=== PATIENT | female | born 1975 | race American Indian/Alaskan Native ===

== ENCOUNTER → 2024-07-21 | Outpatient (CLI) | payer MEDICAID, SELFPAY ==
--- NOTE | 2024-07-21 12:29 | XR_ITS ---
Examination: Foot, right, 3 views Technique: AP, oblique, lateral views foot, 3 views Date and time of exam: July 21, 2024 1231 hrs. Indications: Redness swelling and pain involving the first digit one week. Findings: Soft tissue swelling about the first digit. No fracture. No cortical bone destruction Impression: No fracture or cortical bone destruction
== END | disposition home or self-care (01) ==
LOC: CDIM 12:22
PROVIDERS: Referring Provider Nurse Practitioner Family; Visit Provider Nurse Practitioner Family
DX: E11.65 Type 2 diabetes mellitus with hyperglycemia (principal); L03.031 Cellulitis of right toe; Z97.8 Presence of other specified devices
CPT/HCPCS: 73630